=== PATIENT | male | born 1995 | race Caucasian/White ===

== ENCOUNTER → 2016-08-13 | Outpatient (REF) | LOC: WSOH 08:33 | DX: Z02.1 Encounter for pre-employment examination (principal) ==

== ENCOUNTER → 2016-08-20 | Outpatient (REF) | LOC: WSOH 08:00 | DX: Z11.1 Encounter for screening for respiratory tuberculosis (principal) ==

== ENCOUNTER → 2017-02-14 | Outpatient (CLI) | payer OTHER, BC | LOC: COL.RAD 12:45 | DX: S92.355D Nondisplaced fracture of fifth metatarsal bone, left foot, subsequent encounter for fracture with routine healing (principal); X58.XXXD Exposure to other specified factors, subsequent encounter ==